=== PATIENT | female | born 1965 ===

== ENCOUNTER 2017-04-29 08:36 | Day surgery (SDC) | payer OTHER ==
[2017-04-29] MEDS ORDERED: Lactated Ringer's 500 ML IV ONE (09:40)
[2017-04-29 10:20] VITALS: TEMP 96.8
[2017-04-29] MEDS ORDERED: Propofol 10 mg/ml Inj (20 ML) ONE (11:48)
[2017-04-29 12:49] VITALS: BP 106/63; PULSE 63; RESP 10; O2SAT 99
== END 2017-04-29 13:28 | disposition home or self-care (01) ==
LOC: H.ENDO 08:36
PROVIDERS: ATTEND Internal Medicine Gastroenterology
DX: Z12.11 Encounter for screening for malignant neoplasm of colon (principal); F17.210 Nicotine dependence, cigarettes, uncomplicated; E78.5 Hyperlipidemia, unspecified; K64.0 First degree hemorrhoids; R10.13 Epigastric pain

== ENCOUNTER 2017-12-22 09:28 | Emergency (ER) | payer SELFPAY ==
[2017-12-22 09:46] VITALS: BP 132/86; PULSE 78; RESP 20; TEMP 98; O2SAT 98
--- NOTE | 2017-12-22 10:08 | ED PDOC ---
Lower Extremity Pain/Injury Chief Complaint (Provider): "the back of my right knee has been hurting for the past 4 days" History Per: Patient Additional Complaint(s): 52 y/o female, hx of heavy tobacco abuse, presents for evaluation of right posterior knee pain. Pt reports pain started suddenly, without any inciting or traumatic event. Pain is located in the center of her popliteal fossa w/o radiation. It started as 5/10 but is now up to 8-9/10. It is burning/achy in quality, alleviated with episodic Ibuprofen and Naprosyn usage. Aggravated with ambulation. No other complaints. Denies fever/chills, headaches, changes in vision, CP/SOB/Palpitations, calf pain, numbness/tingling. PMD: Manny San <Sushil Sibley - Last Filed: 12/22/17 11:26> <Kala Castillo - Last Filed: 12/24/17 14:57> Time Seen by Provider: 12/22/17 09:40 Chief Complaint (Nursing): Lower Extremity Problem/Injury Supervising Attending Note - Supervising Attending Note The Documented history was done by the: Physician Assistant Reading Teacher, Attending Physician The documented physical exam was done by the: Physician Assistant Reading Teacher, Attending Physician The documented procedures were done by the: Physician Assistant Reading Teacher, Attending Physician - Attestation: I have personally seen and examined this patient.: Yes I have fully participated in the care of the patient.: Yes I have reviewed all pertinent clinical information, including history, physical exam and plan: Yes <Kala Castillo - Last Filed: 12/24/17 14:57> Past Medical History Reviewed: Historical Data, Nursing Documentation, Vital Signs Vital Signs: Last Vital Signs Temp 98 F 12/22/17 09:41 Pulse 78 12/22/17 09:41 Resp 20 12/22/17 09:41 BP 132/86 12/22/17 09:41 Pulse Ox 98 12/22/17 09:41 - Medical History PMH: Kidney Stones, Chronic Kidney Disease - Family History Family History: States: Unknown Family Hx <Sushil Sibley - Last Filed: 12/22/17 11:26> Reviewed: Historical Data Vital Signs: Last Vital Signs Temp 98 F 12/22/17 09:41 Pulse 78 12/22/17 09:41 Resp 20 12/22/17 09:41 BP 132/86 12/22/17 09:41 Pulse Ox 98 12/22/17 11:32 - Surgical History Surgical History: No Surg Hx <Kala Castillo - Last Filed: 12/24/17 14:57> - Home Medications Home Medications: Ambulatory Orders Medication Instructions Recorded Ibuprofen [Motrin Ib] 600 mg PO Q12 10 Days #20 tablet 12/22/17 - Allergies Allergies/Adverse Reactions: Allergies Allergy/AdvReac Type Severity Reaction Status Date / Time No Known Allergies Allergy Verified 12/22/17 09:41 Wells Criteria for PE - Wells Criteria for Pulmonary Embolism Clinical Signs and Symptoms of DVT: Yes P.E is #1 Diagnosis, or Equally Likely: No Heart Rate >100: No Immobilization at least 3 days;Surgery previous 4 weeks: No Previous, objectively diagnosed PE or DVT: No Hemoptysis: No Malignancy w/treatment within 6 months, or palliative: No Total Score: 3 <Kala Castillo - Last Filed: 12/24/17 14:57> Review of Systems Constitutional: Negative for: Fever, Chills, Sweats, Weakness, Malaise Eyes: Negative for: Vision Change Cardiovascular: Negative for: Chest Pain, Palpitations, Orthopnea, Paroxysmal Noc. Dyspnea, Edema, Light Headedness Respiratory: Negative for: Cough, Shortness of Breath, Hemoptysis, SOB with Exertion, Pleuritic Pain, Sputum, Wheezing Gastrointestinal: Negative for: Nausea, Vomiting, Abdominal Pain, Diarrhea, Constipation, Melena, Hematemesis Musculoskeletal: Positive for: Leg Pain Skin: Negative for: Rash, Bruising Neurological: Negative for: Weakness, Numbness, Incoordination, Change in Speech , Confusion, Seizures, Altered Mental Status, Headache, Dizziness Psych: Negative for: Anxiety <Sushil Sibley - Last Filed: 12/22/17 11:26> ROS Statement: Except As Marked, All Systems Reviewed And Found Negative <Kala Castillo - Last Filed: 12/24/17 14:57> Physical Exam - Reviewed Nursing Documentation Reviewed: Yes Vital Signs Reviewed: Yes - Physical Exam Appears: Positive for: Well, Non-toxic, No Acute Distress Head Exam: Positive for: ATRAUMATIC, NORMAL INSPECTION, NORMOCEPHALIC Skin: Positive for: Normal Color, Warm, Dry. Negative for: Diaphoresis, Pallor Eye Exam: Positive for: EOMI, PERRL. Negative for: Conjunctival injection ENT: Positive for: Normal ENT Inspection Neck: Positive for: Normal, Painless ROM, Supple Cardiovascular/Chest: Positive for: Regular Rate, Rhythm, Chest Non Tender. Negative for: Edema, Gallop, JVD, Tachycardia, Irregularly Irregular Respiratory: Positive for: Normal Breath Sounds. Negative for: Decreased Breath Sounds, Accessory Muscle Use, Crackles, Rales, Rhonchi, Stridor, Wheezing , Respiratory Distress Pulses-Dorsalis Pedis (L): 2+ Pulses-Dorsalis Pedis (R): 2+ Pulses-Radial (L): 2+ Pulses-Radial (R): 2+ Gastrointestinal/Abdominal: Positive for: Normal Exam, Bowel Sounds, Soft. Negative for: Tenderness Back: Negative for: L CVA Tenderness, R CVA Tenderness Extremity: Positive for: Capillary Refill (<2s), Other (homans negative b/l, no calf tenderness b/l, no edema. Palpable cord along popliteal fossa of right knee. Mild tenderness. No erythema/edema/deformity of right knee.). Negative for: Pedal Edema, Calf Tenderness, Swelling DTR - Knee (R): 2+ DTR - Knee (L): 2+ Lymphatic: Negative for: Adenopathy Neurologic/Psych: Positive for: Alert, zipper setter chainstitch II-XII, Oriented, Gait (steady, mild difficutly bearing weight on affected extremity. ). Negative for: Motor/ Sensory Deficits, Mood/Affect, Cerebellar Tests, Aphasia <Sushil Sibley - Last Filed: 12/22/17 11:26> - Reviewed Nursing Documentation Reviewed: Yes <Kala Castillo - Last Filed: 12/24/17 14:57> - ECG O2 Sat by Pulse Oximetry: 98 - Progress ED Course And Treament: alejandro cyst/popliteal DVT/tendinitis LE duplex re-evaluate u/s reviewed, no DVT/popliteal fossa cyst, unremarkable likely tendinitis from over use <Sushil Sibley - Last Filed: 12/22/17 11:26> Disposition - Patient ED Disposition Is Patient to be Admitted: No - Disposition Disposition: Routine/Home Disposition Time: 11:28 <Sushil Sibley - Last Filed: 12/22/17 11:26> Doctor Will See Patient In The: Office Counseled Patient/Family Regarding: Studies Performed, Diagnosis, Need For Followup <Kala Castillo - Last Filed: 12/24/17 14:57> - Clinical Impression Clinical Impression: Knee tendinitis, Knee pain, Knee osteoarthritis - Disposition Referrals: Kim San MD [Family Provider] - Condition: GOOD Additional Instructions: take motrin as prescribed for pain and inflammation limit repetitive injury/movements for the next 10 days rest ice elevate daily be sure to follow up with your primary medical doctor within 1 week any worsening of symptoms, including fever, swelling, pain, return to ED Prescriptions: Ibuprofen [Motrin Ib] 600 mg PO Q12 10 Days #20 tablet Instructions: Osteoarthritis, Pes Anserine Bursitis (DC) Print Language: FRENCH
--- NOTE | 2017-12-22 11:08 | US ---
PROCEDURE: Right lower extremity venous duplex Doppler. HISTORY: palpable cord in popliteal fossa COMPARISON: None available. TECHNIQUE: Common femoral, superficial femoral, popliteal and posterior tibial veins were evaluated. Flow was assessed with color Doppler, compressibility, assessment of phasic flow and augmentation response. FINDINGS: COMMON FEMORAL VEIN: Unremarkable. SUPERFICIAL FEMORAL VEIN: Unremarkable. POPLITEAL VEIN: Unremarkable. POSTERIOR TIBIAL VEIN: Unremarkable. OTHER FINDINGS: None. IMPRESSION: No evidence of deep venous thrombosis in the right lower extremity.
== END 2017-12-22 11:48 | disposition home or self-care (01) ==
LOC: H.ER 09:28
DX: M76.51 Patellar tendinitis, right knee (principal)

== ENCOUNTER 2018-01-08 09:16 | Emergency (ER) | payer SELFPAY ==
[2018-01-08 09:21] VITALS: BMI 26.7
[2018-01-08] MEDS ORDERED: Sodium Chloride 0.9% 1,000 ML IV STA (09:39)
[2018-01-08 10:21] LABS: SQUAMOUS EPITHIAL < 1 /hpf (0-5); URINE BACTERIA OCC (<OCC); URINE BILIRUBIN NEGATIVE (NEGATIVE); URINE BLOOD SMALL (NEGATIVE); URINE CLARITY CLEAR (Clear); URINE COLOR STRAW (YELLOW); URINE GLUCOSE (UA) NEG (Normal); URINE LEUKOCYTE ESTERASE SMALL Leu/uL (Negative); URINE PROTEIN NEGATIVE (NEGATIVE); URINE UROBILINOGEN 0.2-1.0 mg/dL (0.2-1.0)
[2018-01-08 10:23] LABS: BASO # 0.1 K/uL (0.0-0.2); BASO % 0.9 % (0.0-2.0); EOS # 0.3 K/uL (0.0-0.7); HEMOGLOBIN 12.9 g/dL (12.0-16.0); LYMPH # 2.5 K/uL (1.0-4.3); MEAN CELL VOLUME 87.9 fl (81.0-99.0); MEAN CORPUSCULAR HGB CONC 34.1 g/dL (33.0-37.0); MEAN PLATELET VOLUME 8.5 fl (7.2-11.7); MONO # 0.5 K/uL (0.0-0.8); MONO % 6.6 % (0.0-10.0); NEUT % 59.5 % (50.0-75.0); NRBC % 0.1 % (0.0-0.0); RBC 4.31 Mil/uL (3.80-5.20); RED CELL DISTRIBUTION WIDTH 13.3 % (11.5-14.5); WHITE BLOOD COUNT 8.3 K/uL (4.8-10.8)
--- NOTE | 2018-01-08 10:23 | ED PDOC ---
HPI: Female Pain Chief Complaint (Provider): back pain, frequent urination History Per: Patient History/Exam Limitations: no limitations Onset/Duration Of Symptoms: Days (3), Gradual Severity: Mild Associated Symptoms: Nausea, Back Pain, Urinary Symptoms Additional Complaint(s): 52yo female c/o frequent urination and R flank pain, abdominal bloating since yesterday. Denies vomiting, fever, weakness or hematuria. <Julio Sutton III - Last Filed: 01/08/18 10:21> <Hailey Causey - Last Filed: 01/10/18 16:01> Time Seen by Provider: 01/08/18 09:26 Chief Complaint (Nursing): Female Genitourinary Past Medical History Reviewed: Historical Data, Nursing Documentation, Vital Signs Vital Signs: Last Vital Signs Temp 98.1 F 01/08/18 09:20 Pulse 93 H 01/08/18 09:20 Resp BP 132/86 01/08/18 09:20 Pulse Ox 95 01/08/18 09:20 - Medical History PMH: Kidney Stones, Chronic Kidney Disease - Surgical History Other surgeries: breast aug - Family History Family History: States: Unknown Family Hx - Social History Current smoker - smoking cessation education provided: No <Julio Sutton III - Last Filed: 01/08/18 10:21> Vital Signs: Last Vital Signs Temp 98.3 F 01/08/18 14:10 Pulse 83 01/08/18 14:10 Resp 18 01/08/18 14:10 BP 128/82 01/08/18 14:10 Pulse Ox 100 01/08/18 14:10 <Hailey Causey - Last Filed: 01/10/18 16:01> - Home Medications Home Medications: Ambulatory Orders Medication Instructions Recorded Ibuprofen [Motrin Ib] 600 mg PO Q12 10 Days #20 tablet 12/22/17 Ciprofloxacin [Cipro] 500 mg PO BID #14 tab 01/08/18 Naproxen [Naprosyn] 500 mg PO BID PRN #14 tablet 01/08/18 - Allergies Allergies/Adverse Reactions: Allergies Allergy/AdvReac Type Severity Reaction Status Date / Time No Known Allergies Allergy Verified 12/22/17 09:41 Review of Systems Constitutional: Negative for: Fever, Chills Cardiovascular: Negative for: Chest Pain Respiratory: Negative for: Cough Gastrointestinal: Positive for: Abdominal Pain Genitourinary Female: Positive for: Frequency. Negative for: Incontinence, Hematuria, Vaginal Discharge, Pelvic Pain Musculoskeletal: Positive for: Back Pain. Negative for: Neck Pain Skin: Negative for: Rash, Lesions Neurological: Negative for: Weakness, Numbness, Dizziness Psych: Negative for: Suicidal ideation <Julio Sutton III - Last Filed: 01/08/18 10:21> Physical Exam - Reviewed Nursing Documentation Reviewed: Yes Vital Signs Reviewed: Yes - Physical Exam Appears: Positive for: Well, Non-toxic, No Acute Distress Head Exam: Positive for: ATRAUMATIC, NORMAL INSPECTION, NORMOCEPHALIC Skin: Positive for: Normal Color, Warm, DRY Eye Exam: Positive for: EOMI, Normal appearance, PERRL ENT: Positive for: Normal ENT Inspection Neck: Positive for: Normal, Painless ROM Cardiovascular/Chest: Positive for: Regular Rate, Rhythm Respiratory: Positive for: CNT, Normal Breath Sounds Gastrointestinal/Abdominal: Positive for: Soft. Negative for: Tenderness Back: Positive for: R CVA Tenderness. Negative for: Vertebral Tenderness, Muscle Spasm Extremity: Positive for: Normal ROM Neurologic/Psych: Positive for: Alert, Oriented <Julio Sutton III - Last Filed: 01/08/18 10:21> - Laboratory Results Urine POC: Negative Urine dip results: Positive for: Leukocyte Esterase - ECG O2 Sat by Pulse Oximetry: 95 <Julio Sutton III - Last Filed: 01/08/18 10:21> - Laboratory Results Result Diagrams: 01/08/18 10:13 01/08/18 10:13 <Hailey Causey - Last Filed: 01/10/18 16:01> Medical Decision Making Medical Decision Making: Urine culture is positive, patient was appropriately treated with cipro. <Hailey Causey - Last Filed: 01/10/18 16:01> Disposition <Julio Sutton III - Last Filed: 01/08/18 10:21> <Hailey Causey - Last Filed: 01/10/18 16:01> - Clinical Impression Clinical Impression: Pyelonephritis - Disposition Referrals: [facility] [Outside] Condition: STABLE Additional Instructions: Return to ER for any new or worsening symptoms. Take medications as directed. Followup urine culture in 2-3 days/ Prescriptions: Ciprofloxacin [Cipro] 500 mg PO BID #14 tab Naproxen [Naprosyn] 500 mg PO BID PRN #14 tablet PRN Reason: Pain, Moderate (4-7) Instructions: Urinary Tract Infections in Adults, Kidney Infection Forms: [facility] ([employer]) Print Language: BENGALI
[2018-01-08 10:36] LABS: CALCIUM 9.7 mg/dL (8.4-10.2); GFR AFRICAN-AMERICAN > 60; GFR NON-AFRICAN AMERICAN > 60; LIPASE 87 U/L (23-300)
[2018-01-08 10:38] LABS: ALBUMIN 4.5 g/dL (3.5-5.0); ALT/SGPT 31 U/L (9-52); AST/SGOT 73 U/L (14-36); BLOOD UREA NITROGEN 19 mg/dl (7-17)
[2018-01-08] MEDS ORDERED: Iohexol 300 100 ML IJ ONE (11:24)
[2018-01-08] MEDS ORDERED: Sodium Chloride 0.9% 100 ML ONE (11:24)
--- NOTE | 2018-01-08 12:24 | CT ---
PROCEDURE: CT Abdomen and Pelvis with contrast HISTORY: R flank pain, frequent urination COMPARISON: Noncontrast abdomen and pelvis CT examination 06/04/2016. TECHNIQUE: Following the intravenous administration of iodinated contrast material, a CT examination of the abdomen and pelvis performed from the domes of the diaphragms to the symphysis pubis with reformatted datasets provided not only axial but also sagittal and coronal planes. Oral contrast was not administered as per referring physician request. Contrast dose: Omnipaque 300, 95 cc Radiation dose: Total exam DLP = 629.88 mGy-cm. This CT exam was performed using one or more of the following dose reduction techniques: Automated exposure control, adjustment of the mA and/or kV according to patient size, and/or use of iterative reconstruction technique. FINDINGS: LOWER THORAX: Unremarkable. LIVER: Diminished hepatic steatosis is appreciate prominent diffuse fatty infiltration. No intrahepatic biliary duct dilatation is identified or definitive mass. GALLBLADDER AND BILE DUCTS: Unremarkable. PANCREAS: Unremarkable. No gross lesion or ductal dilatation. SPLEEN: Unremarkable. ADRENALS: Unremarkable. No mass. KIDNEYS AND URETERS: Punctate intrarenal calculus again of the lower pole right kidney with cortical loss noted anteriorly at the midpole level suspicious for small cortical infarcts. No left-sided radiodense intrarenal calculus evident grossly. No obstructive uropathy or other suspicious renal finding bilaterally. VASCULATURE: Unremarkable. No aortic aneurysm. BOWEL: Unremarkable. No obstruction. No gross mural thickening. APPENDIX: Normal appendix. PERITONEUM: Unremarkable. No free fluid. No free air. LYMPH NODES: Unremarkable. No enlarged lymph nodes. BLADDER: Unremarkable. REPRODUCTIVE: Unremarkable. BONES: No acute fracture. OTHER FINDINGS: None. IMPRESSION: 1. No definite acute abdominal or pelvic findings. 2. Hepatic steatosis diffusely noted. 3. Nonobstructing punctate intrarenal calculus lower pole right kidney. 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 Bilateral kidneys otherwise appear unremarkable.
[2018-01-08] MEDS ORDERED: cefTRIAXone (Rocephin) 1 gm Inj ONE (13:36)
[2018-01-08 14:12] VITALS: BP 128/82; PULSE 83; RESP 18; TEMP 98.3; O2SAT 100
== END 2018-01-08 14:00 | disposition home or self-care (01) ==
LOC: H.ER 09:16
DX: N12 Tubulo-interstitial nephritis, not specified as acute or chronic (principal); Z87.442 Personal history of urinary calculi; K76.0 Fatty (change of) liver, not elsewhere classified
CPT/HCPCS: 74177; 80053; 81003; 83690; 85025; 87086; 87181; 96361; 96374; 96375; 99284; J0696; J1885; J7040; Q9967

== ENCOUNTER 2018-03-02 08:19 | Emergency (ER) | payer OTHER, SELFPAY ==
[2018-03-02 08:24] VITALS: BMI 28.4
[2018-03-02 08:25] VITALS: BP 120/73; PULSE 88; RESP 17; TEMP 98.2; O2SAT 96
[2018-03-02] MEDS ORDERED: Sodium Chloride 0.9% 1,000 ML IV STA (09:25)
--- NOTE | 2018-03-02 09:32 | ED PDOC ---
HPI: General Adult Time Seen by Provider: 03/02/18 09:22 Chief Complaint (Nursing): Breast Problem Chief Complaint (Provider): Breast injury History Per: Patient History/Exam Limitations: no limitations Onset/Duration Of Symptoms: Days (Friday) Additional Complaint(s): Pt. accidentally fell and hurt her left breast. Did not hit her head, legs, arms. No LOC. Has had pain to the left breast since. No numbness, tingles. She took ice and advil 2 days ago which helped. No weakness, chest pain, dyspnea. No abd pain. No back pain. Past Medical History Reviewed: Nursing Documentation, Vital Signs Vital Signs: Last Vital Signs Temp 98.2 F 03/02/18 08:23 Pulse 88 03/02/18 08:23 Resp 17 03/02/18 08:23 BP 120/73 03/02/18 08:23 Pulse Ox 96 03/02/18 12:51 - Medical History PMH: Kidney Stones, Chronic Kidney Disease - Surgical History Other surgeries: breast reduction surgery b/l 30 yrs ago - Family History Family History: States: Unknown Family Hx - Home Medications Home Medications: Ambulatory Orders Medication Instructions Recorded Acetaminophen [Tylenol Extra 1,000 mg PO BID PRN 5 Days tablet 03/02/18 Strength] - Allergies Allergies/Adverse Reactions: Allergies Allergy/AdvReac Type Severity Reaction Status Date / Time No Known Allergies Allergy Verified 12/22/17 09:41 Review of Systems ROS Statement: Except As Marked, All Systems Reviewed And Found Negative Skin: Positive for: Bruising Physical Exam - Reviewed Nursing Documentation Reviewed: Yes Vital Signs Reviewed: Yes - Physical Exam Appears: Positive for: Non-toxic, No Acute Distress Head Exam: Positive for: ATRAUMATIC, NORMAL INSPECTION, NORMOCEPHALIC Skin: Negative for: Diaphoresis Eye Exam: Positive for: EOMI, Normal appearance, PERRL ENT: Positive for: Normal ENT Inspection Neck: Positive for: Normal, Painless ROM Cardiovascular/Chest: Positive for: Regular Rate, Rhythm, Other (L breast tender diffuse with diffuse echymosis; no laceration; no nipple dc or injury; healed surgical scar present) Respiratory: Positive for: CNT, Normal Breath Sounds Gastrointestinal/Abdominal: Positive for: Soft, Other (small bruise linear at epigastric, nontender). Negative for: Tenderness Back: Positive for: Normal Inspection. Negative for: L CVA Tenderness, R CVA Tenderness Extremity: Positive for: Normal ROM. Negative for: Tenderness, Pedal Edema Neurologic/Psych: Positive for: Alert, Oriented - Laboratory Results Result Diagrams: 03/02/18 10:30 03/02/18 10:30 Interpretation Of Abn Labs: no acute - ECG O2 Sat by Pulse Oximetry: 96 Pulse Ox Interpretation: Normal - CT Scan/US ct Other Rad Studies (CT/US): Read By Radiologist Other Rad Interpretation: 5cm hematoma left breast with contusion changes - Progress ED Course And Treament: 1348: Stable. AAOx3. Pain controlled. Tolerated po. Surgery saw pt. Does not meet criteria for admit. FU with pcp. No intervention at this time. Will resolved on its own per surgery. Disposition - Clinical Impression Clinical Impression: Breast hematoma, Contusion, breast - Patient ED Disposition Is Patient to be Admitted: No - Disposition Referrals: [facility] [Outside] - 03/03/18 Disposition: Routine/Home Disposition Time: 12:57 Condition: STABLE Additional Instructions: Return if not better in 3 days. Prescriptions: Acetaminophen [Tylenol Extra Strength] 1,000 mg PO BID PRN 5 Days tablet PRN Reason: Pain, Moderate (4-7) Instructions: Contusion (DC) Print Language: JAPANESE
[2018-03-02 10:37] LABS: BASO # 0.1 K/uL (0.0-0.2); EOS # 0.3 K/uL (0.0-0.7); EOS % 3.6 % (0.0-4.0); HEMOGLOBIN 12.3 g/dL (12.0-16.0); LYMPH # 3.1 K/uL (1.0-4.3); LYMPH % 32.4 % (20.0-40.0); MEAN CELL VOLUME 89.3 fl (81.0-99.0); MEAN CORPUSCULAR HEMOGLOBIN 29.4 pg (27.0-31.0); MEAN CORPUSCULAR HGB CONC 32.9 g/dL (33.0-37.0); MEAN PLATELET VOLUME 8.6 fl (7.2-11.7); MONO # 0.7 K/uL (0.0-0.8); MONO % 6.8 % (0.0-10.0); NEUT # 5.4 K/uL (1.8-7.0); NEUT % 56.2 % (50.0-75.0); RBC 4.19 Mil/uL (3.80-5.20); RED CELL DISTRIBUTION WIDTH 13.9 % (11.5-14.5); WHITE BLOOD COUNT 9.5 K/uL (4.8-10.8)
[2018-03-02 10:51] LABS: PARTIAL THROMBOPLASTIN TIME 26.3 Seconds (25.6-37.1); PROTHROMBIN TIME 10.9 Seconds (9.8-13.1)
[2018-03-02 10:52] LABS: BLOOD UREA NITROGEN 25 mg/dl (7-17); CALCIUM 9.1 mg/dL (8.4-10.2); GFR AFRICAN-AMERICAN > 60; GFR NON-AFRICAN AMERICAN > 60
[2018-03-02] MEDS ORDERED: Iohexol 300 100 ML IJ ONE (11:05)
--- NOTE | 2018-03-02 12:15 | CT ---
PROCEDURE: CT chest dated 03/02/2018 opacities seen in both lung bases suggesting some mild air trapping. In addition, there also appears to be some minimal passive/dependent type atelectasis both posterior sulci right greater than left. HISTORY: Trauma left breast with large ecchymosis COMPARISON: Comparison made with prior CT scan abdomen pelvis 01/08/2018 which imaged both lung bases. TECHNIQUE: Contiguous helical/transaxial images were obtained through the chest with intravenous contrast enhancement. Sagittal and coronal reconstructions were performed. IV contrast: 95 cc Omnipaque 300 the contrast material Radiation dose (DLP): 413.9669 mGy-cm. This CT exam was performed using one or more of the following dose reduction techniques: Automated exposure control, adjustment of the mA and/or kV according to patient size, and/or use of iterative reconstruction technique. . . FINDINGS: LUNGS: Mild ground-glass opacities both lower lung mcfarland likely due to some air trapping. Mild linear scarring also present in the right middle and left upper lobes. MEDIASTINUM: Heart size mildly enlarged. No significant pericardial effusion. Ascending thoracic aorta measures approximately 2.9 cm and descending thoracic aorta measures approximately 2.2 cm. Pulmonary trunk measures approximately 2.2 cm. There are a few small nonspecific mediastinal lymph nodes most prominent of which located in the AP window measuring approximately 9mm. Central airways midline and patent. No large central endoluminal lesions. Small hiatal hernia. PLEURA: No pleural fluid. No pneumothorax. BONES: Multilevel degenerative spondylosis of the thoracic spine. No acute compression fractures no retropulsed fragments. UPPER ABDOMEN: Grossly unremarkable. OTHER FINDINGS: There is a small elliptical shaped soft tissue density within the subcutaneous tissues subjacent to the skin surface left breast that measures approximately 5 cm trans x 0.7 mm AP x 2.34 mm cc consistent with a small hematoma. In addition, there are also surrounding infiltration changes within the subcutaneous tissues about the small hematoma left breast consistent with posttraumatic contusional changes . There is there is mild overlying skin thickening. Followup mammography may be prudent to serve as a future comparison exam to assess resolution IMPRESSION: Small elliptical shaped soft tissue density within the subcutaneous tissues subjacent to the skin surface left breast that measures approximately 5 cm trans x 0.7 mm AP x 2.34 mm cc consistent with a small hematoma. In addition, there are also surrounding infiltration changes within the subcutaneous tissues about the small hematoma left breast consistent with posttraumatic contusional changes . There is there is mild overlying skin thickening. Followup mammography may be prudent to assess resolution serve as a future comparison exam. Mild ground-glass opacities both lower lung mcfarland likely due to air trapping. There also some minor linear scarring changes seen right middle and left lower lobes
--- NOTE | 2018-03-02 14:00 | CP.PCM.CON ---
History of Present Illness - History of Present Illness History of Present Illness: Surgery Consult note. Dr. Leiva 52yo F with no significant PMHx here for evaluation of left breast pain. Patient states that she tripped and fell two days ago, she fell forward and caught herself up against a pole and hit her left breast and chest against the pole. Since then she has been having some pain, slightly getting worse and has noted some skin changes of the left breast. She took some advil 2 days ago with moderate improvement and has been using Ice packs for symptomatic relief. She denies any Abd pain, no N/V/D. No CP/SOB. No F/C. No Urinary complaints. PMHx: Denies PSHx: bilateral breast reduction 30 years ago. Family Hx: non-contributory Social Hx: current Tobacco use, denies ETOH use, Denies illicit drugs NKDA Review of Systems - Review of Systems All systems: reviewed and no additional remarkable complaints except - Constitutional Constitutional: absent: Chills, Fever - Breasts Additional comments: left breast ecchymosis, pain upon palpation Past Patient History - Infectious Disease Hx of Infectious Diseases: None - Past Medical History & Family History Past Medical History?: No - Past Social History Smoking Status: Heavy Smoker > 10 Cigarettes Daily - RENAL Hx Chronic Kidney Disease: Yes Hx Kidney Stones: Yes - PSYCHIATRIC Hx Emotional Abuse: No Hx Physical Abuse: No Hx Substance Use: No - SURGICAL HISTORY Hx Surgeries: Yes Hx Section: Yes Other/Comment: ASHISH BREAST REDUCTION - ANESTHESIA Hx Anesthesia: Yes Hx Anesthesia Reactions: No Hx Malignant Hyperthermia: No Meds Home Medications: Home Medication List Medication Instructions Recorded Confirmed Type Acetaminophen [Tylenol Extra 1,000 mg PO BID PRN 5 Days tablet 03/02/18 Rx Strength] Allergies/Adverse Reactions: Allergies Allergy/AdvReac Type Severity Reaction Status Date / Time No Known Allergies Allergy Verified 12/22/17 09:41 Physical Exam - Constitutional Appears: Well, Non-toxic, No Acute Distress - Head Exam Head Exam: ATRAUMATIC, NORMAL INSPECTION, NORMOCEPHALIC - Eye Exam Eye Exam: EOMI, Normal appearance. absent: Scleral icterus - ENT Exam ENT Exam: Mucous Membranes Moist - Respiratory Exam Respiratory Exam: NORMAL BREATHING PATTERN. absent: Accessory Muscle Use, Respiratory Distress - Cardiovascular Exam Cardiovascular Exam: RRR. absent: JVD - GI/Abdominal Exam GI & Abdominal Exam: Soft. absent: Distended, Firm, Guarding, Rebound, Rigid, Tenderness - Extremities Exam Extremities exam: Positive for: normal inspection. Negative for: calf tenderness - Skin Additional comments: breast exam: Right - no palpable masses. No R Axillary lymphadenopathy Left - tender to palpation inferior breast. Eccymotic changes seen throughout left inferior breast. No masses palpable. No L Axillary lymphadenopathy Results - Vital Signs Recent Vital Signs: Last Vital Signs Temp 98.2 F 03/02/18 08:23 Pulse 88 03/02/18 08:23 Resp 17 03/02/18 08:23 BP 120/73 03/02/18 08:23 Pulse Ox 96 03/02/18 13:50 - Labs Result Diagrams: 03/02/18 10:30 03/02/18 10:30 Labs: Laboratory Results - last 24 hr 03/02/18 03/02/18 03/02/18 10:30 10:30 10:30 WBC 9.5 RBC 4.19 Hgb 12.3 Hct 37.4 MCV 89.3 MCH 29.4 MCHC 32.9 L RDW 13.9 Plt Count 263 MPV 8.6 Neut % (Auto) 56.2 Lymph % (Auto) 32.4 [place] % (Auto) 6.8 Eos % (Auto) 3.6 Baso % (Auto) 1.0 Neut # (Auto) 5.4 Lymph # (Auto) 3.1 [place] # (Auto) 0.7 Eos # (Auto) 0.3 Baso # (Auto) 0.1 PT 10.9 INR 1.0 APTT 26.3 Sodium 141 Potassium 4.2 Chloride 106 Carbon Dioxide 24 Anion Gap 15 BUN 25 H Creatinine 0.6 L Est GFR ( Amer) > 60 Est GFR (Non-Af Amer) > 60 Random Glucose 94 Calcium 9.1 Assessment & Plan - Assessment and Plan (Free Text) Assessment: 52yo F with left breast hematoma. Stable, non-expanding - CT scan noted. - VSS. Hb/Hct 12.3/37.4 Plan: - Cleared for discharge home from surgical standpoint - No acute indications for surgical intervention at this time - Ice compresses as needed for patient comfort - Pain management Further recs as per Dr. Abbie Aguilar PGY1 surgery pager: [phone]
== END 2018-03-02 14:11 | disposition home or self-care (01) ==
LOC: H.ER 08:19 → SUPCPDRO 08:19 → H.ER 14:11
DX: S20.02XA Contusion of left breast, initial encounter (principal); W01.0XXA Fall on same level from slipping, tripping and stumbling without subsequent striking against object, initial encounter; Y92.89 Other specified places as the place of occurrence of the external cause
CPT/HCPCS: 71260; 80048; 85025; 85610; 85730; 99284; J7030; Q9967